=== PATIENT | female | born 1935 | race Caucasian/White ===

== ENCOUNTER 2016-12-09 16:40 | Emergency (ER) | payer OTHER ==
[2016-12-09 17:05] LABS: BILIRUBIN,URINE NEGATIVE (NEG); CLARITY,URINE CLEAR (CLEAR); COLOR,URINE YELLOW; GLUCOSE, URINE (UA) NEGATIVE (NEG); NITRATE,URINE NEGATIVE (NEG); OCCULT BLOOD,URINE NEGATIVE (NEG); PH,URINE 5.5 (5.0-8.5); PROTEIN,URINE NEGATIVE (NEG); UROBILINOGEN,URINE 0.2 EU/dL (0.2)
[2016-12-09 17:08] LABS: URINE SAMPLE TYPE CLEAN CATCH URINE
[2016-12-09 17:15] VITALS: RESP 14; TEMP 98.5
--- NOTE | 2016-12-09 17:29 | PDOC ---
Female Problem HPI - General Chief Complaint: Genitourinary Complaint Stated Complaint: URINARY FREQUENCY/PRESSURE x1 WEEK Date Seen by Provider: 12/09/16 Time Seen by Provider: 16:45 Source: POSITIVE: Patient Exam Limitations: POSITIVE: No limitations Nurse's Notes Reviewed & Considered: Yes - History of Present Illness Initial Comments: The patient is a 81-year-old female who presents to the emergency department with urinary complaints. She states that she has from [place] and has been camping at [place] for the past several days. She states that for the past week or so she has had increased urinary frequency and urgency as well as generalized lower abdominal pressure. She denies fevers or chills, nausea vomiting, flank pain or any other associated symptoms. She thought that initially she might have a yeast infection however she tried treating this and her symptoms have not improved. - Patient Home Medications Home Medications: Home Medications Ciprofloxacin HCl [Cipro HCl] 250 mg PO Q12H #10 tab 12/09/16 Losartan [Cozaar] 50 mg PO DAILY 12/09/16 Phenazopyridine HCl [Pyridium] 200 mg PO TID PRN #6 tablet 12/09/16 - Patient Allergies Allergies/Adverse Reactions: Allergies Allergy/AdvReac Type Severity Reaction Status Date / Time codeine Allergy NOT Verified 12/09/16 16:49 APPLICABLE Past Medical History - heen HEENT History: Other (please comment) Additional HEENT History: WEARS GLASSES Cardiovascular History: Hypertension Respiratory History: Denies History Gastrointestinal History: Denies History Genitourinary History: Denies History Endocrine History: Denies History Musculoskeletal History: Denies History Prosthesis or Implant: No Neurological History: Denies History Blood Disorders: Denies History Psychiatric History: Denies History History of Sexually Transmitted Diseases: No Female Reproductive History: Denies History Cancer History: Denies History In Past Year Been Physically Harmed or Verbally Threatened: No (PER PATIENT) History of MDRO: No History of Other Communicable Diseases: No Tobacco Use: Never Smoker Alcohol Use: None Substance Use Type: None Previous Surgical History: Yes Type / Date of Surgery: BACK SURGERY, CHOLECYSTECTOMY, APPENDECTOMY, COMPLETE HYSTERECTOMY Anesthesia Reactions: No Malignant Hyperthermia: No Family History of Malignant Hyperthermia: No Significant Family History: No pertinent family hx Past Medical History Reviewed: Reviewed - No Changes ROS - Limitations ROS Limitations: No Limitations Constitution: DENIES: Chills, Fever Cardiovascular: REPORTS: Denies Cardiac Symptoms Respiratory: REPORTS: Denies Resp Symptoms Neurological: REPORTS: Denies Neuro Symptoms Female Genitourinary Exam - General Appearance General Appearance: POSITIVE: Alert, Cooperative, No Acute Distress - HEENT HEENT: POSITIVE: Head Inspection Nml - Respiratory Respiratory: POSITIVE: No Respiratory Distress, Breath Sounds Normal - Cardiovascular Cardiovascular: POSITIVE: Regular Rate and Rhythm, Heart Sounds Normal - Abdomen Abdomen: POSITIVE: Soft, Normal Bowel Sounds, Non-Tender - Skin Skin: POSITIVE: Intact, No Rash - Extremities Extremity: Normal ROM: (All Extremities), Normal Inspection: (All Extremities) Female Genitourinary Progress - Results Reviewed by me Lab Results Reviewed: Yes Lab Results:: Laboratory Results 12/09/16 Range/Units 16:59 Ur Collection Type Clean catch urine Urine Color Yellow Urine Clarity Clear (CLEAR) Urine pH 5.5 (5.0-8.5) Ur Specific [place] <=1.005 (1.005-1.030) Urine Protein Negative (NEG) mg/dl Urine Glucose (UA) Negative (NEG) mg/dL Urine Ketones Trace (NEG) Urine Occult Blood Negative (NEG) Urine Nitrate Negative (NEG) Urine Bilirubin Negative (NEG) Urine Urobilinogen 0.2 (0.2) EU/dL Ur Leukocyte Esterase Negative (NEG) Ur Culture Indicated? Culture not set - Patient's Progress MDM / ED Course: Her urinalysis was unremarkable. Her symptoms are consistent with a cystitis. She was started on Cipro 250 mg twice a day for 5 days as well as Pyridium 200 mg 3 times a day for 2 days. She is advised to push fluids. She will return to the maternal she develops increased pain, fever, worsening or change in symptoms. She is advised follow-up with primary care upon return home to [place]. - Consult Counseled: POSITIVE: Patient, Family, RE: Lab Results, RE: DX, RE: Need for F/U Patient Care Time - Estimated PCT Patient Care Time (In Minutes): 15 Vital Signs - Recent Vital Signs Vital Signs: Vital Signs (Last 8 hours) Temp Pulse Resp BP Pulse Ox 12/09/16 16:40 98.5 F 89 14 182/99 96 - VS Reviewed Vital Signs Reviewed: Yes Discharge Clinical Impression: Dysuria Discharge Disposition: Discharged to Home Condition: Stable Prescriptions / Orders: Ciprofloxacin HCl [Cipro HCl] 250 mg PO Q12H #10 tab Phenazopyridine HCl [Pyridium] 200 mg PO TID PRN #6 tablet PRN Reason: Urinary Discomfort Patient Instructions Given at Discharge: Dysuria (ED) Additional Instructions: He will be treated for a urinary tract infection. You have been started on Cipro 250 mg twice a day for 5 days. In addition your prescribed Pyridium 200 mg 3 times a day for 2 days. This will help with the urinary symptoms until antibiotics have a chance to work. Push fluids. Return to the emergency room if increased pain, fever, difficulty urinating, any worsening or change in symptoms. Recommend follow-up with primary care if symptoms do not improve in 3 -5 days. Follow Up With: NONE,NONE [Primary Care Provider] -
== END 2016-12-09 17:20 | disposition home or self-care (01) ==
LOC: ER 16:40
DX: R30.0 Dysuria (principal); N30.90 Cystitis, unspecified without hematuria; R39.15 Urgency of urination; R35.0 Frequency of micturition
CPT/HCPCS: 81003; 99282